=== PATIENT | female | born 1970 | race Caucasian/White ===

== ENCOUNTER 2021-09-16 17:07 | Emergency (ER) | payer MEDICAID, OTHER ==
[~2021-09-16] VITALS: Ht 175.3 cm; Wt 86.0 kg
[~2021-09-16 17:07] MED LIST: BLOO-1379 MC; INSLAN SQ; LEVO100T9 PO; LEVO50TA; MAGN800O PO; [UNRECOGNIZED DRUG - CODE] MC
[2021-09-16] MEDS ORDERED: BACITRACIN ZINC OINT UDPKT TOP ONE (17:30)
[2021-09-16] MEDS ORDERED: BO1 TP (17:40)
[2021-09-16] MEDS ORDERED: IBUP-2029 PO (17:40)
[2021-09-16] MEDS ORDERED: CLIN300C12 MT (17:43)
[2021-09-16] MEDS ORDERED: HYDROCODONE/ACETAMINOPHEN 5/325MG TABLET PO ONE (17:45)
[2021-09-16 18:05] VITALS: BP 115/64
== END 2021-09-16 18:13 | disposition home or self-care (01) ==
LOC: ER 17:07
DX: S61.211D Laceration without foreign body of left index finger without damage to nail, subsequent encounter (principal); E11.9 Type 2 diabetes mellitus without complications; Z48.00 Encounter for change or removal of nonsurgical wound dressing; Z86.39 Personal history of other endocrine, nutritional and metabolic disease; X58.XXXD Exposure to other specified factors, subsequent encounter
CPT/HCPCS: 99283

== ENCOUNTER 2021-09-23 17:47 | Emergency (ER) | payer OTHER ==
[~2021-09-23] VITALS: Ht 170.2 cm; Wt 82.0 kg
[~2021-09-23 17:47] MED LIST changes: +BO1 TP; +CLIN300C12 MT; +IBUP-2029 PO
[2021-09-23 18:17] VITALS: BP 127/77
[2021-09-23] MEDS ORDERED: BACITRACIN 15GM TUBE TOP ONE (18:45)
== END 2021-09-23 19:17 | disposition home or self-care (01) ==
LOC: ER 17:47
DX: Z48.00 Encounter for change or removal of nonsurgical wound dressing (principal); E11.9 Type 2 diabetes mellitus without complications; Z86.39 Personal history of other endocrine, nutritional and metabolic disease
CPT/HCPCS: 99282; Z7610

== ENCOUNTER 2022-04-10 17:51 | Emergency (ER) | payer OTHER ==
[~2022-04-10] VITALS: Ht 175.3 cm; Wt 91.0 kg
[~2022-04-10 17:51] MED LIST changes: +CLIN-194 MT; -CLIN300C12 MT
[2022-04-10 17:55] VITALS: BP 162/95
[2022-04-10] MEDS ORDERED: KETOROLAC 15MG/ML VIAL IV ONE (18:45)
[2022-04-10 20:34] LABS: BASOPHILS % 2.3 % (0.0-2.0); EOSINOPHILS % 2.9 % (0.0-5.0); HEMATOCRIT. 37.1 % (36.0-48.0); HEMOGLOBIN. 12.5 g/dL (12.0-16.0); LYMPHOCYTES % 28.7 % (20.0-50.0); MEAN CORPUSCULAR HEMOGLOBIN 31.5 pg (28.0-32.0); MEAN CORPUSCULAR VOLUME 93.4 fL (81.0-99.0); MEAN PLATELET VOLUME 7.3 fl (7.4-10.4); MONOCYTES % 11.6 % (2.0-8.0); NEUTROPHILS % 54.5 % (40.0-76.0); PLATELET 153 x1000/uL (130-400); RED BLOOD CELL COUNT 3.97 mill/uL (4.2-5.4); RED CELL DISTRIBUTION WIDTH 14.1 % (11.6-14.6)
[2022-04-10 20:47] LABS: CHLORIDE 112 mEq/L (98-107)
[2022-04-10 21:23] LABS: HCG SCREEN INDETERMINATE
== END 2022-04-11 00:33 | disposition left against medical advice (07) ==
LOC: ER 17:51 → CANBEDREQ 04-12 08:44
DX: K74.60 Unspecified cirrhosis of liver (principal); R18.8 Other ascites; E11.9 Type 2 diabetes mellitus without complications; E05.90 Thyrotoxicosis, unspecified without thyrotoxic crisis or storm; Z79.4 Long term (current) use of insulin
CPT/HCPCS: 36415; 71045; 74176; 76705; 80053; 82962; 83880; 84484; 84703; 85025; 99285

== ENCOUNTER 2022-04-17 10:22 | Emergency (ER) | payer OTHER ==
[~2022-04-17] VITALS: Ht 175.3 cm; Wt 100.0 kg
[2022-04-17] MEDS ORDERED: ONDANSETRON HCL 4MG/2ML INJ IV STA ×2 (12:15→18:44)
[2022-04-17] MEDS ORDERED: SODIUM CHLORIDE 0.9% 1,000 ML IV ONE (12:15)
[2022-04-17] MEDS ORDERED: MORPHINE SULFATE 4 MG/ML CPJ (NOT FOR IM USE) IV STA ×2 (12:15→18:44)
[2022-04-17 12:23] LABS: EOSINOPHILS % 0.4 % (0.0-5.0); HEMOGLOBIN. 9.8 g/dL (12.0-16.0); LYMPHOCYTES % 18.6 % (20.0-50.0); MEAN CORPUSCULAR VOLUME 94.8 fL (81.0-99.0); MEAN PLATELET VOLUME 8.2 fl (7.4-10.4); MONOCYTES % 10.8 % (2.0-8.0); NEUTROPHILS % 68.2 % (40.0-76.0); PLATELET 136 x1000/uL (130-400); RED BLOOD CELL COUNT 3.17 mill/uL (4.2-5.4); RED CELL DISTRIBUTION WIDTH 14.5 % (11.6-14.6)
[2022-04-17 12:30] LABS: CHLORIDE 114 mEq/L (98-107)
[2022-04-17 12:42] LABS: INR 1.4; PARTIAL THROMBOPLASTIN TIME 33.6 sec (23.4-31.0); PROTHROMBIN TIME 14.6 sec (9.6-11.0)
[2022-04-17 14:57] LABS: HEPATITIS B SURFACE ANTIGEN NEGATIVE
[2022-04-17 22:00] VITALS: BP 109/72
== END 2022-04-17 21:30 | disposition short-term general hospital (02) ==
LOC: ER 10:22 → CANBEDREQ 04-19 00:56
DX: R18.8 Other ascites (principal); E11.9 Type 2 diabetes mellitus without complications; Z87.19 Personal history of other diseases of the digestive system; E05.90 Thyrotoxicosis, unspecified without thyrotoxic crisis or storm; Z79.899 Other long term (current) drug therapy; Z20.822 Contact with and (suspected) exposure to COVID-19
CPT/HCPCS: 36415; 71045; 80053; 82962; 83690; 83880; 84484; 85025; 85610; 85730; 86705; 86709; 86803; 86850; 86900; 86901; 87340; 87426; 93005; 96361; 96374; 96375; 96376; 99285; C9803; J2270; J2405; J7030